=== PATIENT | male | born 1990 | race African-American/Black ===

== ENCOUNTER 2017-06-17 19:56 | Inpatient (IN) | payer MEDICAID ==
[~2017-06-17] VITALS: Ht 195.6 cm; Wt 138.9 kg
[2017-06-17] MEDS ORDERED: SODIUM CHLORIDE 0.9% 1,000 ML IV ONE (20:36)
[2017-06-17 21:13] LABS: BASOPHILS % 0.9 % (0.0-2.0); EOSINOPHILS % 1.1 % (0.0-5.0); HEMATOCRIT. 36.7 % (42.0-52.0); HEMOGLOBIN. 12.2 g/dL (14.0-18.0); LYMPHOCYTES % 37.9 % (20.0-50.0); MEAN CORPUSCULAR VOLUME 78.6 fL (80.0-94.0); MEAN PLATELET VOLUME 8.9 fl (7.4-10.4); MONOCYTES % 6.2 % (2.0-8.0); NEUTROPHILS % 53.9 % (40.0-76.0); PLATELET 227 x1000/uL (130-400); RED BLOOD CELL COUNT 4.67 mill/uL (4.7-6.1); RED CELL DISTRIBUTION WIDTH 14.8 % (11.6-14.6)
[2017-06-17 21:14] LABS: INR 1.2; PROTHROMBIN TIME 12.5 sec (9.4-11.6)
[2017-06-17 21:16] LABS: CHLORIDE 106 mEq/L (98-107)
[2017-06-17 21:19] LABS: CARBON DIOXIDE 25 mEq/L (21-32)
[2017-06-17 21:25] LABS: TROPONIN I 0.37 ng/mL (0.00-0.04)
[2017-06-18] VITALS (9 sets, daily range): BP systolic 133–161; BP diastolic 69–123
[2017-06-18] MEDS ORDERED: HYDRALAZINE 20MG/ML VIAL IV SCH
[2017-06-18] MEDS ORDERED: FUROSEMIDE 40MG/4ML VIAL IVP SCH
[2017-06-18] MEDS ORDERED: ASPIRIN 325MG TABLET PO SCH
[2017-06-18] MEDS ORDERED: POTASSIUM CHLORIDE 20MEQ TABLET SR PO SCH
[2017-06-18] MEDS ORDERED: MAGNESIUM/ALUMINUM HYDROXIDE/SIMETHICONE 30ML UDC PO PRN (02:00)
[2017-06-18] MEDS ORDERED: GUAIFENESIN 200MG/10ML SUGAR FREE UDC PO PRN (02:00)
[2017-06-18] MEDS ORDERED: CLONIDINE 0.1MG TABLET PO PRN ×2 (02:00→05:15)
[2017-06-18] MEDS ORDERED: DIPHENHYDRAMINE 50MG/ML VIAL IV PRN (02:00)
[2017-06-18 02:29] LABS: BG CARBOXYHEMOGLOBIN 0.6 % (0.5-1.5); BG DEOXYHEMOGLOBIN 1.3 % (0.0-5.0); BG FRACTION INSPIRED OXYGEN 28; BG HCO3 ACT 19.9 mmol/L (22.0-26.0); BG METHEMOGLOBIN 0.2 % (0.0-1.5); BG OXYGEN SATURATION 98.7 % (92.0-98.5); BG OXYHEMOGLOBIN 97.9 % (94.0-97.0); BG PCO2 29.9 mmHg (35.0-45.0); BG PH 7.442 (7.350-7.450); BG PO2 134.6 mmHg (75.0-100.0); BG SAMPLE SITE RIGHT RADIAL; BG TOTAL HEMOGLOBIN 13.5 g/dL (12.0-18.0); BG VENT MODE NASAL CANNULA
[2017-06-18] MEDS: ACETAMINOPHEN 325MG TABLET PO PRN (04:58)
[2017-06-18] MEDS: HYDRALAZINE 20MG/ML VIAL IV PRN ×2 (04:59→20:42)
[2017-06-18] MEDS ORDERED: DEXTROSE 50% WATER 50ML SYRINGE IV PRN (05:15)
[2017-06-18] MEDS: SODIUM CHLORIDE 0.9% INJ 3ML FLUSH IVF SCH ×3 (05:39→22:15)
[2017-06-18] MEDS ORDERED: MAGNESIUM 2 G PREMIX 50 ML IV SCH (07:00)
[2017-06-18] MEDS: INSULIN LISPRO 100 UNITS/ML SUBCUT SCH ×4 (08:00→20:40)
[2017-06-18] MEDS: BLOOD SUGAR DIAGNOSTIC STRIP TEST SCH ×4 (08:29→20:59)
[2017-06-18] MEDS ORDERED: METOPROLOL TARTRATE 50MG TABLET PO SCH (09:00)
[2017-06-18] MEDS: AMLODIPINE 10MG TABLET PO SCH (10:04)
[2017-06-18] MEDS ORDERED: SODIUM CHLORIDE 0.9% 10ML VIAL ONE (14:43)
[2017-06-18] MEDS ORDERED: IOHEXOL-350 100 ML BOTTLE ONE (14:43)
[2017-06-18] MEDS: POTASSIUM CHLORIDE 20MEQ TABLET SR PO SCH ×2 (15:08→18:01)
[2017-06-18] MEDS: FUROSEMIDE 40MG/4ML VIAL IVP SCH (15:08)
[2017-06-18] MEDS: ISOSORB DINIT/HYDRALAZINE HCL 20/37.5MG TABLET PO SCH ×2 (15:09→22:15)
[2017-06-19] VITALS (10 sets, daily range): BP systolic 131–159; BP diastolic 91–110
[2017-06-19] MEDS: ACETAMINOPHEN 325MG TABLET PO PRN ×2 (03:23→12:09)
[2017-06-19] MEDS: HYDRALAZINE 20MG/ML VIAL IV PRN (03:29)
[2017-06-19] MEDS: ISOSORB DINIT/HYDRALAZINE HCL 20/37.5MG TABLET PO SCH ×2 (05:04→14:07)
[2017-06-19] MEDS: SODIUM CHLORIDE 0.9% INJ 3ML FLUSH IVF SCH (05:08)
[2017-06-19 06:34] LABS: *AMPHETAMINES SCREEN URINE NEGATIVE (NEGATIVE); *BARBITURATES SCREEN URINE NEGATIVE (NEGATIVE); *BENZODIAZEPINES SCREEN URINE NEGATIVE (NEGATIVE); *COCAINE SCREEN URINE NEGATIVE (NEGATIVE); CANNABINOID URINE SCREEN PRESUMTIVE POSITIVE (NEGATIVE); METHADONE URINE SCREEN NEGATIVE (NEGATIVE); OPIATES URINE SCREEN NEGATIVE (NEGATIVE); PHENCYCLIDINE URINE SCREEN NEGATIVE (NEGATIVE)
[2017-06-19] MEDS: BLOOD SUGAR DIAGNOSTIC STRIP TEST SCH ×3 (07:30→17:57)
[2017-06-19 09:11] LABS: CARBON DIOXIDE 28 mEq/L (21-32); CHLORIDE 105 mEq/L (98-107)
[2017-06-19] MEDS: FUROSEMIDE 40MG/4ML VIAL IVP SCH (09:43)
[2017-06-19] MEDS: AMLODIPINE 10MG TABLET PO SCH (09:43)
[2017-06-19] MEDS: INSULIN LISPRO 100 UNITS/ML SUBCUT SCH ×3 (09:43→18:35)
[2017-06-19] MEDS: POTASSIUM CHLORIDE 20MEQ TABLET SR PO SCH ×2 (09:44→18:33)
[2017-06-19] MEDS ORDERED: LOSARTAN POTASSIUM 50 MG TABLET PO SCH (11:45)
[2017-06-19] MEDS ORDERED: CARVEDILOL 25MG TABLET PO SCH (11:45)
[2017-06-19] MEDS ORDERED: BENAZEPRIL 20MG TABLET PO SCH (17:00)
[2017-06-19] MEDS ORDERED: FUROSEMIDE 40MG/4ML VIAL IVP SCH (17:15)
== END 2017-06-19 21:23 | disposition home or self-care (01) | DRG 194 ==
LOC: ER 20:30 → 5EST 06-18 00:20 → EDBEDREQ 06-18 00:23 → EDBEDREQTM 06-18 00:28 → EDBEDREQ 06-18 00:28 → ENRESERV 06-18 02:58
PROVIDERS: ADMIT Internal Medicine; ATTEND Internal Medicine
DX: I11.0 Hypertensive heart disease with heart failure (principal); E44.1 Mild protein-calorie malnutrition; E66.01 Morbid (severe) obesity due to excess calories; E11.9 Type 2 diabetes mellitus without complications; I50.43 Acute on chronic combined systolic (congestive) and diastolic (congestive) heart failure; F12.90 Cannabis use, unspecified, uncomplicated; Z72.0 Tobacco use; Z82.49 Family history of ischemic heart disease and other diseases of the circulatory system; Z83.3 Family history of diabetes mellitus; Z68.36 Body mass index [BMI] 36.0-36.9, adult
CPT/HCPCS: 36415; 36600; 71010; 71275; 80048; 80053; 80305; 82375; 82805; 82962; 83036; 83735; 83880; 84484; 85025; 85379; 85610; 93005; 93970; 96361; 96374; 96375; 99291; A4216; G0482; J0360; J1815; J1940; J3475; J7030; Q9967

== ENCOUNTER 2018-04-07 04:32 | Inpatient (IN) | payer OTHER ==
[2018-04-07] VITALS (9 sets, daily range): BP systolic 146–179; BP diastolic 87–128
[~2018-04-07] VITALS: Ht 195.6 cm; Wt 158.8 kg
[~2018-04-07 04:32] MED LIST: LISI-604 PO; METO-539 MT; SITA50TA3 MT
[2018-04-07] MEDS ORDERED: ACETAMINOPHEN 325MG TABLET PO STA (06:32)
[2018-04-07] MEDS ORDERED: SODIUM CHLORIDE 0.9% 1,000 ML IV ONE (06:32)
[2018-04-07] MEDS ORDERED: KETOROLAC 30MG/ML VIAL IV STA (06:32)
[2018-04-07] MEDS ORDERED: SODIUM CHLORIDE 0.9% 1000ML BAG (SEPSIS BOLUS) IV ONE (06:45)
[2018-04-07] MEDS ORDERED: ASPIRIN 81MG TABLET PO ONE (07:15)
[2018-04-07] MEDS ORDERED: LABETALOL 5MG/ML SYR 20 MG/4 ML SYRINGE IV ONE (07:15)
[2018-04-07 07:22] LABS: BASOPHILS % 1.1 % (0.0-2.0); CHLORIDE 105 mEq/L (98-107); EOSINOPHILS % 0.5 % (0.0-5.0); HEMATOCRIT. 39.7 % (42.0-52.0); INR 1.3; LYMPHOCYTES % 34.7 % (20.0-50.0); MEAN CORPUSCULAR HEMOGLOBIN 26.1 pg (28.0-32.0); MEAN CORPUSCULAR VOLUME 79.7 fL (80.0-94.0); MEAN PLATELET VOLUME 9.1 fl (7.4-10.4); MONOCYTES % 6.7 % (2.0-8.0); PLATELET 259 x1000/uL (130-400); PROTHROMBIN TIME 13.5 sec (9.4-11.6); RED BLOOD CELL COUNT 4.98 mill/uL (4.7-6.1); RED CELL DISTRIBUTION WIDTH 15.1 % (11.6-14.6)
[2018-04-07] MEDS ORDERED: NITROGLYCERIN 0.4MG TABLET SL SL PRN (08:00)
[2018-04-07] MEDS ORDERED: NITROGLYCERIN OINT 1GM/INCH UDPKT TD ONE (08:00)
[2018-04-07] MEDS ORDERED: CLONIDINE 0.2MG TABLET PO ONE (08:45)
[2018-04-07] MEDS ORDERED: MORPHINE SULFATE 4 MG/ML CPJ (NOT FOR IM USE) IV ONE (08:45)
[2018-04-07] MEDS ORDERED: CLONIDINE 0.1MG TABLET PO PRN (09:30)
[2018-04-07] MEDS ORDERED: HYDRALAZINE 20MG/ML VIAL IV PRN (09:30)
[2018-04-07] MEDS ORDERED: POTASSIUM CHLORIDE 20MEQ TABLET SR PO SCH (10:00)
[2018-04-07] MEDS: LOSARTAN POTASSIUM 50 MG TABLET PO SCH ×2 (10:23→16:43)
[2018-04-07] MEDS: FUROSEMIDE 40MG/4ML VIAL IVP SCH ×2 (10:23→16:43)
[2018-04-07] MEDS ORDERED: AMLODIPINE 2.5MG TABLET PO SCH (10:30)
[2018-04-07] MEDS ORDERED: ENOXAPARIN 40MG/0.4ML SYR SUBCUT SCH (12:00)
[2018-04-07] MEDS: NITROGLYCERIN OINT 1GM/INCH UDPKT TD SCH ×2 (12:04→16:42)
[2018-04-07] MEDS ORDERED: SPIRONOLACTONE 25MG TABLET PO SCH (14:15)
[2018-04-07 16:11] LABS: CLARITY URINE CLEAR (CLEAR); COLOR URINE YELLOW (YELLOW); KETONES URINE NEGATIVE (NEGATIVE); LEUKOCYTE ESTERASE URINE NEGATIVE (NEGATIVE); NITRITE URINE NEGATIVE (NEGATIVE); OCCULT BLOOD URINE NEGATIVE (NEGATIVE); PROTEIN URINE NEGATIVE (NEGATIVE); SPECIFIC GRAVITY URINE 1.007 (1.005-1.030); UROBILINOGEN URINE 0.2 E.U./dL (0.2-1.0)
[2018-04-07 16:23] LABS: *AMPHETAMINES SCREEN URINE NEGATIVE (NEGATIVE); *BARBITURATES SCREEN URINE NEGATIVE (NEGATIVE)
[2018-04-07 16:24] LABS: *BENZODIAZEPINES SCREEN URINE NEGATIVE (NEGATIVE); *COCAINE SCREEN URINE NEGATIVE (NEGATIVE); CANNABINOID URINE SCREEN PRESUMTIVE POSITIVE (NEGATIVE); METHADONE URINE SCREEN NEGATIVE (NEGATIVE); OPIATES URINE SCREEN PRESUMTIVE POSITIVE (NEGATIVE); PHENCYCLIDINE URINE SCREEN NEGATIVE (NEGATIVE)
[2018-04-07] MEDS ORDERED: AMLODIPINE 5MG TABLET PO SCH (17:00)
[2018-04-07] MEDS ORDERED: DEXTROSE 50% WATER 50ML SYRINGE IV PRN (18:15)
[2018-04-07] MEDS ORDERED: ONDANSETRON HCL 4MG/2ML VIAL IV NR (20:15)
[2018-04-07] MEDS ORDERED: INSULIN LISPRO 100 UNITS/ML SUBCUT SCH (21:00)
[2018-04-07] MEDS ORDERED: BLOOD SUGAR DIAGNOSTIC STRIP TEST SCH (21:00)
[2018-04-07] MEDS ORDERED: CARVEDILOL 6.25 MG TABLET PO SCH (21:00)
[2018-04-08] MEDS ORDERED: POTASSIUM CHLORIDE 20MEQ TABLET SR PO SCH (09:00)
[2018-04-08] MEDS ORDERED: FUROSEMIDE 40MG/4ML VIAL IVP SCH ×2 (09:00)
== END 2018-04-07 21:48 | disposition short-term general hospital (02) | DRG 199 ==
LOC: ER 04:32 → 5EST 08:12 → EDBEDREQTM 08:15 → EDBEDREQ 08:15 → ENRESERV 08:29
PROVIDERS: ADMIT Internal Medicine; ATTEND Internal Medicine
DX: I16.0 Hypertensive urgency (principal); I42.9 Cardiomyopathy, unspecified; I50.9 Heart failure, unspecified; Z68.41 Body mass index [BMI] 40.0-44.9, adult; E66.01 Morbid (severe) obesity due to excess calories; I11.0 Hypertensive heart disease with heart failure; E11.9 Type 2 diabetes mellitus without complications; F12.90 Cannabis use, unspecified, uncomplicated; Z91.19 Patient's noncompliance with other medical treatment and regimen
CPT/HCPCS: 36415; 71045; 80053; 80305; 81003; 82962; 83605; 83735; 84484; 85025; 85379; 85610; 87040; 87077; 87086; 87186; 93005; 93306; 93970; 96361; 96374; 96375; 99285; J1650; J1885; J1940; J2270; J2405; J3490; J7030

== ENCOUNTER 2018-04-07 21:14 | Inpatient (IN) | payer MEDICAID, OTHER ==
[~2018-04-07] VITALS: Ht 195.6 cm; Wt 172.4 kg
[2018-04-08] VITALS (13 sets, daily range): BP systolic 109–179; BP diastolic 83–128
[2018-04-08] MEDS ORDERED: CLONIDINE 0.1MG TABLET PO PRN (02:45)
[2018-04-08] MEDS ORDERED: HYDRALAZINE 20MG/ML VIAL IV PRN (02:45)
[2018-04-08] MEDS: LOSARTAN POTASSIUM 50 MG TABLET PO SCH ×2 (03:08→08:36)
[2018-04-08] MEDS: AMLODIPINE 5MG TABLET PO SCH ×3 (03:09→20:41)
[2018-04-08] MEDS: CARVEDILOL 6.25 MG TABLET PO SCH ×3 (03:09→20:41)
[2018-04-08] MEDS: NITROGLYCERIN OINT 1GM/INCH UDPKT TD SCH ×5 (05:05→20:40)
[2018-04-08] MEDS: ENOXAPARIN 40MG/0.4ML SYR SUBCUT SCH ×2 (08:35→20:40)
[2018-04-08] MEDS ORDERED: FUROSEMIDE 40MG/4ML VIAL IVP SCH (09:00)
[2018-04-08] MEDS ORDERED: SPIRONOLACTONE 25MG TABLET PO SCH (09:00)
[2018-04-08] MEDS ORDERED: POTASSIUM CHLORIDE 20MEQ TABLET SR PO SCH (09:00)
[2018-04-08] MEDS ORDERED: LOSARTAN POTASSIUM 50 MG TABLET PO SCH (17:39)
== END 2018-04-08 21:24 | disposition short-term general hospital (02) | DRG 194 ==
LOC: ER 22:25 → 5EST 22:28 → EDBEDREQTM 22:36 → EDBEDREQSVC 22:36 → EDBEDREQ 22:36 → ENRESERV 23:07 → 5EST 04-08 02:57
PROVIDERS: ADMIT Internal Medicine; ATTEND Internal Medicine
DX: I13.0 Hypertensive heart and chronic kidney disease with heart failure and stage 1 through stage 4 chronic kidney disease, or unspecified chronic kidney disease (principal); E11.22 Type 2 diabetes mellitus with diabetic chronic kidney disease; I42.9 Cardiomyopathy, unspecified; E66.9 Obesity, unspecified; I50.9 Heart failure, unspecified; F12.90 Cannabis use, unspecified, uncomplicated; N18.9 Chronic kidney disease, unspecified; M19.90 Unspecified osteoarthritis, unspecified site; Z91.19 Patient's noncompliance with other medical treatment and regimen; I25.2 Old myocardial infarction; Z79.899 Other long term (current) drug therapy; Z68.42 Body mass index [BMI] 45.0-49.9, adult
CPT/HCPCS: 71045; 82962; 99285; J1650; J1940